=== PATIENT | male | born 1990 | race African-American/Black ===

== ENCOUNTER 2018-06-07 20:16 | Emergency (ER) | payer SELFPAY ==
[~2018-06-07] VITALS: Ht 175.3 cm; Wt 90.7 kg
--- NOTE | 2018-06-07 20:42 | NUR ---
ED Nurse Note: Pt states he been coughing and headache for 2 days. denies preet at the moment. per pt he took tyenol 1400 today
[2018-06-07 20:43] VITALS: BP 122/92
[2018-06-07] MEDS ORDERED: ALBUTEROL SULF8.5 GM INH (21:30)
[2018-06-07] MEDS ORDERED: PROMETHAZINE-C118 M1 ORAL (21:30)
[2018-06-07 21:35] VITALS: BP 122/92
--- NOTE | 2018-06-07 21:35 | NUR ---
ER DISCHARGE NOTE: Patient is cleared to be discharged per ERMD, pt is aox4, on room air, with stable vital signs. pt was given dc and prescription instructions, pt was able to verbalize understanding, pt id band removed. pt is able to ambulate with steady gait. pt took all belongings.
--- NOTE | 2018-06-07 22:26 | Emergency Room Report ---
History of Present Illness General Chief Complaint: Headache Source: Patient Present Illness HPI 27-year-old male presents ED for evaluation. Complaining of coughing and headache for the last 4 days. States that his grandmother has been sick and was noted to have bronchitis. Cough is dry. Doesn't notes headache. Dull, 4 out of 10, nonradiating. Denies sore throat or ear ache. Denies asthma or smoking. No other aggravating relieving factors. Denies any other associated symptoms Allergies: Coded Allergies: No Known Allergies (Unverified , 06/07/18) Patient History Past Medical History: none Past Surgical History: none Pertinent Family History: none Social History: Denies: smoking, alcohol use, drug use Reviewed Nursing Documentation: PMH: Agreed; PSxH: Agreed Nursing Documentation-PMH Past Medical History: No Stated History Review of Systems All Other Systems: negative except mentioned in HPI Physical Exam Vital Signs Date Time Temp Pulse Resp B/P (MAP) Pulse Ox O2 Delivery O2 Flow Rate FiO2 06/07/18 20:31 98.4 73 19 122/92 98 Room Air Sp02 EP Interpretation: reviewed, normal General Appearance: no apparent distress, alert, GCS 15, non-toxic Head: normocephalic, atraumatic Eyes: bilateral eye normal inspection, bilateral eye PERRL ENT: hearing grossly normal, normal pharynx, no angioedema, normal voice Neck: full range of motion, supple/symm/no masses Respiratory: chest non-tender, lungs clear, normal breath sounds, speaking full sentences Cardiovascular #1: regular rate, rhythm, no edema Cardiovascular #2: 2+ carotid (R), 2+ carotid (L), 2+ radial (R), 2+ radial (L) , 2+ dorsalis pedis (R), 2+ dorsalis pedis (L) Gastrointestinal: normal bowel sounds, non tender, soft, non-distended, no guarding, no rebound Rectal: deferred Genitourinary: normal inspection, no CVA tenderness Musculoskeletal: back normal, gait/station normal, normal range of motion, non- tender Neurologic: alert, oriented x3, responsive, motor strength/tone normal, sensory intact, speech normal Psychiatric: judgement/insight normal, memory normal, mood/affect normal, no suicidal/homicidal ideation Reflexes: 3+ bicep (R), 3+ bicep (L), 3+ tricep (R), 3+ tricep (L), 3+ knee (R) , 3+ knee (L) Skin: normal color, no rash, warm/dry, well hydrated Lymphatic: no adenopathy Medical Decision Making Diagnostic Impression: Primary Impression: Bronchitis ER Course Hospital Course 27-year-old male presents to ED complaining of cough, headache Differential diagnoses include: URI, pharyngitis, otitis media, asthma Clinical course Patient placed on stretcher. After initial history, physical exam reveals a male in no acute distress. Bilateral TM unremarkable. No pharyngeal erythema. No tonsillar exudates. No lymphadenopathy. lungs clear. abdomen soft. Clinical findings consistent with bronchitis. Reassurance given to parents. treatment is supportive therapy Patient afebrile, nontoxic appearing. Course is viral and self-limited. We will discharge with cough medication and inhaler. Safe for discharge or close outpatient follow-up. Has a PMD Diagnosis -bronchitis Stable and discharged home with Rx albuterol, promethazine/codeine. Instructed to followup with PMD. Return to ED if symptoms recur or worsen Last Vital Signs Date Time Temp Pulse Resp B/P (MAP) Pulse Ox O2 Delivery O2 Flow Rate FiO2 06/07/18 21:35 98.4 73 19 122/92 98 Room Air Status: improved Disposition: HOME, SELF-CARE Condition: Stable Scripts Codeine/Promethazine Hcl* (PROMETHAZINE-CODEINE SYRUP*) 118 Ml Syrup 5 ML ORAL Q6H PRN for For Cough, #118 ML 0 Refills Prov: Derrick Murcia MD 06/07/18 Albuterol Sulfate* (ALBUTEROL SULFATE MDI*) 8.5 Gm Hfa.aer.ad 2 PUFF INH Q6H, #1 EA 0 Refills Prov: Derrick Murcia MD 06/07/18 Patient Instructions: Acute Bronchitis, [id number] Derrick Murcia MD Jun 07, 2018 22:26
== END 2018-06-07 21:35 | disposition home or self-care (01) ==
LOC: EMR 20:31
DX: J40 Bronchitis, not specified as acute or chronic (principal)
CPT/HCPCS: 99282